=== PATIENT | female | born 1980 | race Caucasian/White ===

== ENCOUNTER 2022-04-06 08:46 | Emergency (ER) | payer SELFPAY ==
[~2022-04-06] VITALS: Ht 167.6 cm; Wt 81.8 kg
[2022-04-06 08:54] VITALS: TEMP 98.2
[2022-04-06] MEDS ORDERED: CYMBALTA 60MG60 MG PO (09:03)
[2022-04-06] MEDS ORDERED: TOPAMAX 25MG25 M1 PO (09:05)
[2022-04-06 09:14] LABS: COLLECTION METHOD CLEAN CATCH
[2022-04-06 09:18] LABS: BASO # 0.1 K/mm3 (0.0-0.2); BASO % 0.7 % (0.0-2.0); EOS # 0.3 K/mm3 (0.0-0.7); EOS % 2.9 % (0.0-4.0); GRAN # 4.8 K/mm3 (1.4-6.5); GRAN % 56.2 % (42.2-75.2); HEMATOCRIT 39.7 % (37.0-47.0); HEMOGLOBIN 13.4 g/dl (12.5-16.0); LYMPH # 2.8 K/mm3 (1.2-3.4); LYMPH % 32.5 % (20.0-51.0); MEAN CELL VOLUME 89 fl (80.0-100.0); MEAN CORPUSCULAR HEMOGLOBIN 30 pg (27-31); MEAN CORPUSCULAR HGB CONC 34 g/dl (33.0-37.0); MEAN PLATELET VOLUME 9.9 fl (7.4-10.4); MONO # 0.6 K/mm3 (0.1-0.6); MONO % 7.3 % (1.7-9.3); PLATELET COUNT 285 K/mm3 (130-400); RED BLOOD COUNT 4.48 M/mm3 (4.10-5.30); REDCELL DISTRIBUTION WIDTH-CV 13.4 % (11.5-14.5)
[2022-04-06 09:21] LABS: PH 7 (5-8); SQUAMOUS EPITHELIAL None Seen /hpf (0-10); URINE APPEARANCE Clear (CLEAR/HAZY); URINE BACTERIA None Seen /hpf (NONE SEEN); URINE BLOOD Negative (NEGATIVE); URINE COLOR Colorless (YELLOW); URINE GLUCOSE Negative (NEGATIVE); URINE KETONE Negative (NEGATIVE); URINE NITRATE Negative (NEGATIVE); URINE PROTEIN(semi-quant) Negative (NEGATIVE); URINE RBC 0-2 /hpf (0-2); URINE UROBILINOGEN Negative (NEGATIVE)
[2022-04-06 09:29] LABS: TRICYCLIC ANTIDEPRESS URINE NEGATIVE
[2022-04-06 09:35] LABS: ALANINE AMINOTRANSFERASE 20 U/L (0-55); ALBUMIN 3.7 gm/dL (3.5-5.0); ALKALINE PHOSPHATASE 68 U/L (40-150); ANION GAP 10 mmol/L (7-16); AST,SGOT 21 U/L (5-34); BILIRUBIN,TOTAL 0.4 mg/dL (0.2-1.2); BLOOD UREA NITROGEN 15 mg/dL (7-19); CALCIUM 8.9 mg/dL (8.4-10.2); CARBON DIOXIDE 18 mmol/L (22-29); CHLORIDE 111 mmol/L (98-107); CREATININE, serum 0.78 mg/dL (0.57-1.11); GLUCOSE 93 mg/dL (70-99); SALICYLATE 5.2 mg/dL (15.0-30.0); SODIUM 139 mmol/L (136-145); TOTAL PROTEIN 6.9 gm/dL (6.2-8.1)
[2022-04-06 09:36] LABS: ALCOHOL(ethanol),MEDICAL < 10 mg/dL (0-10)
[2022-04-06 09:57] LABS: TROPONIN-I < 0.010 ng/mL (0.00-0.033)
[2022-04-06] MEDS ORDERED: KEPPRA 500MG500 MG PO (11:21)
[2022-04-06 12:06] VITALS: BP 109/71; PULSE 68
== END 2022-04-06 12:08 | disposition home or self-care (01) ==
LOC: COL.ER 08:46
PROVIDERS: Emergency Medicine
DX: R41.82 Altered mental status, unspecified (principal); F17.210 Nicotine dependence, cigarettes, uncomplicated; Z28.310 Unvaccinated for COVID-19
CPT/HCPCS: J1953; J7030

== ENCOUNTER 2023-06-17 09:32 | Emergency (ER) | payer OTHER ==
[~2023-06-17] VITALS: Ht 167.6 cm; Wt 100.0 kg
[~2023-06-17 09:32] MED LIST: CYMBALTA 60MG60 MG PO; DESYREL 50MG50 MG PO; KEPPRA 500MG500 MG PO; NORCO 325 MG-51 TAB PO; TOPAMAX 25MG25 M1 PO
[2023-06-17 09:43] VITALS: TEMP 98.2
[2023-06-17 12:00] VITALS: BP 113/77; PULSE 86
== END 2023-06-17 12:00 | disposition home or self-care (01) ==
LOC: COL.ER 09:32
DX: M79.662 Pain in left lower leg (principal); F17.210 Nicotine dependence, cigarettes, uncomplicated; F17.290 Nicotine dependence, other tobacco product, uncomplicated; Z28.310 Unvaccinated for COVID-19
CPT/HCPCS: J1885

== ENCOUNTER 2024-05-27 09:18 | Emergency (ER) | payer OTHER ==
[~2024-05-27] VITALS: Ht 167.6 cm; Wt 100.0 kg
[2024-05-27 09:29] VITALS: TEMP 98.1
[2024-05-27 10:10] LABS: COLLECTION METHOD CLEAN CATCH
[2024-05-27 10:15] LABS: PH 7.5 (5.0-8.5); URINE APPEARANCE CLOUDY (CLEAR/HAZY); URINE BLOOD NEGATIVE (NEGATIVE); URINE COLOR YELLOW (YELLOW); URINE GLUCOSE NEGATIVE (NEGATIVE); URINE KETONE NEGATIVE (NEGATIVE); URINE NITRATE NEGATIVE (NEGATIVE); URINE PROTEIN(semi-quant) NEGATIVE (NEGATIVE)
[2024-05-27 10:24] LABS: BASO # 0.1 K/mm3 (0.0-0.2); BASO % 0.9 % (0.0-2.0); EOS # 0.6 K/mm3 (0.0-0.7); EOS % 7.2 % (0.0-4.0); GRAN # 4.6 K/mm3 (1.4-6.5); GRAN % 53.6 % (42.2-75.2); HEMATOCRIT 38.7 % (37.0-47.0); HEMOGLOBIN 12.5 g/dl (12.5-16.0); LYMPH # 2.7 K/mm3 (1.2-3.4); LYMPH % 31.8 % (20.0-51.0); MEAN CELL VOLUME 91 fl (80.0-100.0); MEAN CORPUSCULAR HEMOGLOBIN 29 pg (27-31); MEAN CORPUSCULAR HGB CONC 32 g/dl (33.0-37.0); MEAN PLATELET VOLUME 10.3 fl (7.4-10.4); MONO # 0.5 K/mm3 (0.1-0.6); MONO % 6.2 % (1.7-9.3); PLATELET COUNT 282 K/mm3 (130-400); RED BLOOD COUNT 4.25 M/mm3 (4.10-5.30); REDCELL DISTRIBUTION WIDTH-CV 13.9 % (11.5-14.5)
[2024-05-27] MEDS ORDERED: NS 1,000 ML IV ONE (10:30)
[2024-05-27] MEDS ORDERED: Ketorolac 15 MG/ML VIAL IV ONE (10:30)
[2024-05-27 10:46] LABS: ALBUMIN 3.6 g/dL (3.5-5.0); BILIRUBIN,TOTAL 0.2 mg/dL (0.2-1.2); C-REACTIVE PROTEIN 0.85 mg/dL (0.00-0.50); CALCIUM 8.9 mg/dL (8.4-10.2); CREATININE, serum 0.85 mg/dL (0.57-1.11); POTASSIUM 3.6 mEq/L (3.5-4.5); TOTAL PROTEIN 6.8 g/dl (6.2-8.1)
[2024-05-27] MEDS ORDERED: Iohexol 300 - 100 ML VIAL IV ONE (11:45)
[2024-05-27] MEDS ORDERED: NS 100 ML IV ONE (11:46)
[2024-05-27] MEDS ORDERED: NORCO 325 MG-51 TAB PO (13:04)
[2024-05-27 13:10] VITALS: BP 106/76; PULSE 68
== END 2024-05-27 13:10 | disposition home or self-care (01) ==
LOC: COL.ER 09:18
PROVIDERS: Emergency Medicine; Nurse Practitioner
DX: K63.89 Other specified diseases of intestine (principal)
CPT/HCPCS: J1885; J7030; Q9967

== ENCOUNTER 2024-06-16 14:56 | Emergency (ER) | payer OTHER ==
[~2024-06-16] VITALS: Ht 165.1 cm; Wt 100.0 kg
[2024-06-16 15:03] VITALS: TEMP 98.2
[2024-06-16] MEDS ORDERED: Ketorolac 30 MG/ML VIAL IM ONE (17:15)
[2024-06-16] MEDS ORDERED: ROBAXIN 75750 MG/TAB PO (17:16)
[2024-06-16] MEDS ORDERED: TORADOL 10MG TA10 MG PO (17:42)
[2024-06-16 18:06] VITALS: BP 132/84; PULSE 86
== END 2024-06-16 18:05 | disposition home or self-care (01) ==
LOC: COL.ER 14:56
DX: M54.2 Cervicalgia (principal); Z87.891 Personal history of nicotine dependence
CPT/HCPCS: J1885